=== PATIENT | female | born 1955 | race Caucasian/White ===

== ENCOUNTER 2022-12-18 13:45 | Emergency (ER) | payer OTHER, SELFPAY ==
[2022-12-18 13:53] VITALS: BP 117/55; PULSE 67; RESP 16; TEMP 36.6; O2SAT 98; BMI 25.5
--- NOTE | 2022-12-18 13:57 | DI.RAD.S_ITS ---
PROCEDURE: XR FOOT LT MIN 3V INDICATIONS: Knocked over by horse, pain TECHNIQUE: 3 views of the foot were acquired. COMPARISON: None. FINDINGS: Bones: No fractures or dislocations. No suspicious bony lesions. An accessory ossicle is present adjacent to the base of the 5th metacarpal. Widening of the PIP joint of the 5th toe appears chronic. Soft tissues: No tibiotalar joint effusion. Achilles tendon appears normal. IMPRESSION: No acute abnormality of the left foot. Dictated by: Rayshawn Vazquez M.D. on 12/18/2022 at 13:36 Approved by: Rayshawn Vazquez M.D. on 12/18/2022 at 13:38
--- NOTE | 2022-12-18 14:52 | ED_ITS ---
HPI - Extremity Injury (Lower) <MOLLY Nayak - Last Filed: 12/18/22 15:38> General Chief Complaint: Extremity Injury, Lower Stated Complaint: LT FOOT INJURY Time Seen by Provider: 12/18/22 14:01 Source: patient Mode of arrival: Wheelchair History of Present Illness HPI Narrative: 67-year-old female, never smoker, presents to the emergency department with left foot pain after being knocked down by her horse yesterday afternoon. Patient denies hitting her head or any loss of consciousness. Home treatment included NSAIDs, ice and elevation. Related Data Home Medications Medication Instructions Recorded Confirmed ACETAMINOPHEN (TYLENOL) 0 PO PRN ##0 09/30/06 Atorvastatin Calcium (Lipitor) 10 mg PO Q DAY ##0 09/30/06 HYDROCODONE/ACET 5/500 - 1 tab PO PRN ##0 09/30/06 (Hydrocodon-Acetaminophen 5-500) Allergies Allergy/AdvReac Type Severity Reaction Status Date / Time No Known Drug Allergies Allergy Verified 12/18/22 13:53 Review of Systems <MOLLY Nayak - Last Filed: 12/18/22 15:38> Review of Systems Narrative: Narrative: See HPI. GENERAL: Denies chills, fatigue, fever, sweats. RESPIRATORY: Denies dyspnea, cough, wheezing, sputum. CARDIOVASCULAR: Denies chest pain, palpitations, edema. GASTROINTESTINAL: Denies nausea, vomiting, abdominal pain, diarrhea, constipation. MSK: Denies weakness. Endorses left foot swelling and bruising. SKIN: Denies rash, skin lesions, or pruritis. NEUROLOGIC: Denies weakness, dizziness, headache, numbness, confusion. Patient History <MOLLY Nayak - Last Filed: 12/18/22 15:38> Social History Smoking Status: Never smoker Smoking Status: Never smoker alcohol intake frequency: holidays/special occasions only Substance Use Type: does not use Exam <MOLLY Nayak - Last Filed: 12/18/22 15:38> Narrative Exam Narrative: Exam Narrative: GENERAL: This is a well-nourished, well-developed patient, in no acute distress HEAD: Atraumatic. Normocephalic. RESPIRATORY: Respiratory rate and effort are normal. MSK: Moves all extremities. Normal range of motion, no clubbing or edema. Neurovascularly intact. NEURO: A&O x 3. SKIN: Warm, dry, no rashes or lesions noted. FOOT: There is swelling, bruising but no asymmetry. There is no tenderness to general palpation. Sensation grossly intact. There is no tenderness over the mid-foot or arch. Positive tenderness over metatarsal 3 and 4. The ankle flexion and extension is intact. Toes range of motion intact. The contralateral foot exam is unremarkable. Initial Vital Signs Initial Vital Signs: Vital Signs Temperature 97.9 F 12/18/22 13:53 Pulse Rate 67 12/18/22 13:53 Respiratory Rate 16 12/18/22 13:53 Blood Pressure 117/55 L 12/18/22 13:53 Pulse Oximetry 98 12/18/22 13:53 Oxygen Delivery Method Room Air 12/18/22 13:53 Reviewed <DO Shena Funk Last Filed: 12/18/22 16:08> Initial Vital Signs Initial Vital Signs: Vital Signs Temperature 97.9 F 12/18/22 13:53 Pulse Rate 67 12/18/22 13:53 Respiratory Rate 16 12/18/22 13:53 Blood Pressure 117/55 L 12/18/22 13:53 Pulse Oximetry 98 12/18/22 13:53 Oxygen Delivery Method Room Air 12/18/22 13:53 Course <MOLLY Nayak - Last Filed: 12/18/22 15:38> Orders Ordered: ED Orders 12/18/22 13:57 XR foot LT min 3V Stat Vital Signs Vital signs: Vital Signs - 8 hr 12/18/22 13:53 12/18/22 15:42 Temperature 97.9 F Pulse Rate 67 70 Respiratory Rate 16 Blood Pressure 117/55 L 99/58 L Pulse Oximetry 98 97 Oxygen Delivery Method Room Air Room Air <DO Shena Funk Last Filed: 12/18/22 16:08> Orders Ordered: ED Orders 12/18/22 13:57 XR foot LT min 3V Stat Vital Signs Vital signs: Vital Signs - 8 hr 12/18/22 13:53 12/18/22 15:42 Temperature 97.9 F Pulse Rate 67 70 Respiratory Rate 16 Blood Pressure 117/55 L 99/58 L Pulse Oximetry 98 97 Oxygen Delivery Method Room Air Room Air MDM - Extremity Injury (Lower) <MOLLY Nayak - Last Filed: 12/18/22 15:38> Differential Diagnosis Differential diagnosis: Likely ankle sprain and strain and other (Foot fracture, contusion) Imaging Data Extremity x-ray #1: My Impression: Normal foot. Radiologist's Impression: [address] [address] XRay Report Signed Patient: Leann Metcalf MR#: [id number] : 1955 Acct:[id number] Age/Sex: 67 / F Date of Service: 12/18/22 Loc: ED Accession Number: [id number] ?? Procedure: XR foot LT min 3V Ordering Provider: Wild Orozco D.O. PROCEDURE:? XR FOOT LT MIN 3V ? INDICATIONS:? Knocked over by horse, pain ? TECHNIQUE:? 3 views of the foot were acquired.? ? COMPARISON:? None. ? FINDINGS:? ? Bones:? No fractures or dislocations.? No suspicious bony lesions.? An accessory ossicle is present adjacent to the base of the 5th metacarpal.? Widening of the PIP joint of the 5th toe appears chronic. ? Soft tissues:? No tibiotalar joint effusion.? Achilles tendon appears normal.? ? ? IMPRESSION:? No acute abnormality of the left foot. ? ? Dictated by: Rayshawn Vazquez M.D. on 12/18/2022 at 13:36 ? ? Approved by: Rayshawn Vazquez M.D. on 12/18/2022 at 13:38 ? MDM Narrative Medical decision making narrative: 67-year-old female with left foot pain x1 day. Assessment was encouraging and x-ray was normal. Recommended supportive care that includes Rest (modified activity), along with ice, compression wrap/splint-immobilize as directed and elevation above heart. Tylenol or Ibuprofen for discomfort. Discussed plan of care and return precautions with patient, who verbalized understanding and was agreeable with course of action. Discharge Plan Departure Patient Disposition: Home Clinical Impression: Injury of foot, left Instructions: DI for Foot Pain Activity Restrictions/Additional Instructions: *You have been diagnosed with a left foot injury. My assessment was encouraging and your x-ray was normal. Please treat herself with supportive care that includes Rest (modified activity), along with ice, immobilize as needed and elevation above heart. Tylenol or Ibuprofen for discomfort. Please follow-up with your family doctor as needed. *What to do: *Please continue to take your regular medications as directed. [ ] New medication prescriptions sent to your pharmacy: [ ] [ ] New medication written as a paper prescription [ x] No new medications given *Please follow up with your primary care provider in 2-3 days, call for an appointment. Let them know you were seen in the Emergency Department and that we ask that you be seen in follow up. We will electronically transmit a record of today's note if your PCP is in our system *If you do not have a primary care provider please contact the [facility] Resource line at [phone]. They will ask some questions about your medical history and help get you set up with a doctor in the community. ? Return to ER if you should have any new, worsening or concerning symptoms, such as worsening pain, severe headache, confusion, chest pain, difficulty breathing, fever greater than 101 F, shaking chills, persistent vomiting to the point that you cannot drink fluids, or other new or worsening symptoms. Prescriptions: No Action ACETAMINOPHEN (TYLENOL) 0 PO PRN Qty: 0 Atorvastatin Calcium (Lipitor) 10 mg PO Q DAY Qty: 0 HYDROCODONE/ACET 5/500 - (Hydrocodon-Acetaminophen 5-500) 1 tab PO PRN Qty: 0 Stand Alone Forms: Patient Portal/API <Wild Orozco, DO - Last Filed: 12/18/22 16:08> [facility] ED [facility] Dr Orozco Co-Sign Statement: I was available for consultation during this patient's emergency department visit. This chart is signed by myself for administrative purposes only. I did not have direct contact with this patient during this visit. They were seen independently by the APC.
[2022-12-18 15:42] VITALS: BP 99/58; PULSE 70; O2SAT 97
== END 2022-12-18 15:43 | disposition home or self-care (01) ==
PROVIDERS: Emergency Provider Registered Nurse
DX: S99.922A Unspecified injury of left foot, initial encounter (principal); V80.010A Animal-rider injured by fall from or being thrown from horse in noncollision accident, initial encounter; Y93.52 Activity, horseback riding
CPT/HCPCS: 73630; 99281; 99282

== ENCOUNTER 2024-06-02 21:12 | Observation (INO) | payer MEDICARE, SELFPAY ==
[2024-06-02] VITALS (8 sets, daily range): BP systolic 138–168; BP diastolic 65–84; PULSE 58–72; RESP 12–36; TEMP 36.5; O2SAT 98–99; BMI 25.7
--- NOTE | 2024-06-02 21:21 | EKG_ITS ---
[address] [address] Test Date: 2024-06-02 Pat Name: Leann Metcalf Department: [facility] Room: Gender: Female [employer] Winder: REINA : 1955 Requested By: Order Number: [id number] Reading MD: Stefan Rushing Measurements Intervals Lilly Rate: 56 P: 64 ND: 176 QRS: 19 QRSD: 86 T: 14 QT: 448 QTc: 432 Interpretive Statements Sinus bradycardia with sinus arrhythmia Electronically Signed On 06-04-2024 19:42:22 PST by Stefan Rushing
--- NOTE | 2024-06-02 21:28 | ED.GENADULT ---
HPI - General Adult General Chief complaint: Nausea/Vomiting/Diarrhea Stated complaint: severe nausea, vomiting, chest px Time Seen by Provider: 06/02/24 21:13 Source: patient Mode of arrival: Ambulatory Limitations: no limitations History of Present Illness HPI narrative: Patient is a 69-year-old female. Recently underwent a Orthopedic surgery to her right shoulder. She has been on pain medication. Over the past week has not a bowel movement. Having abdominal pain and has been vomiting uncontrollable over the past 24 hours. No fevers. She states that her right shoulder seems to be recovering well. She feels like her abdomen is distended. She was urinating. She has been taking stool softeners without relief. States that she was having some chest pain and shortness of breath however most likely from all of the vomiting and just generalized body aches. No fevers. Related Data Home Medications Medication Instructions Recorded Confirmed ACETAMINOPHEN (TYLENOL) 0 PO PRN ##0 09/30/06 Atorvastatin Calcium (Lipitor) 10 mg PO Q DAY ##0 09/30/06 HYDROCODONE/ACET 5/500 - 1 tab PO PRN ##0 09/30/06 (Hydrocodon-Acetaminophen 5-500) Allergies Allergy/AdvReac Type Severity Reaction Status Date / Time No Known Drug Allergies Allergy Verified 12/18/22 13:53 Review of Systems Review of Systems ROS Unobtainable: All systems reviewed & are unremarkable except as noted in HPI and below Patient History Social History Smoking Status: Never smoker Smoking Status: Never smoker alcohol intake frequency: holidays/special occasions only Exam Initial Vital Signs Initial Vital Signs: Vital Signs Temperature 97.7 F 06/02/24 21:14 Pulse Rate 65 06/02/24 21:14 Respiratory Rate 22 06/02/24 21:14 Blood Pressure 138/84 06/02/24 21:14 Pulse Oximetry 98 06/02/24 21:14 Oxygen Delivery Method Room Air 06/02/24 21:14 Const General: cooperative Other: Appears uncomfortable with vomiting Resp Effort & Inspection: normal respiratory effort Auscultation: clear to auscultation bilaterally Cardio Rate: regular rate Rhythm: regular rhythm GI Inspection: non-distended Palpation: soft, No firm, No guarding and tender Skin General: no rashes or lesions noted Neuro General: patient alert, patient awake and moves all extremities Extrem General: capillary refill normal Course Orders Ordered: ED Orders 06/02/24 21:14 EKG-12 Lead Stat 06/02/24 21:28 CT abdomen pelvis w con Stat 06/02/24 21:39 Complete Blood Count AUTO DIFF Stat Comprehensive Metabolic Panel Stat Lipase Stat Troponin & CK Cardiac Panel Stat 06/02/24 21:57 XR chest 1V Stat 06/02/24 22:55 Urine Culture Stat Urine Microscopic Stat Sodium Chloride (Normal Saline 0.9%) 1,000 mls @ 100 mls/hr IV CONT KEIRA Last Admin: 06/03/24 02:12 Dose: 100 mls/hr Documented By: CY Discontinued Medications Sodium Chloride (Normal Saline 0.9%) 1,000 mls @ 1,000 mls/hr IV BOLUS ONE Stop: 06/02/24 22:28 Last Infusion: 06/02/24 22:40 Dose: Infused Documented By: Admin: 06/02/24 21:36 Dose: 1,000 mls/hr Documented By: Lorazepam (Lorazepam 2 Mg/Ml Inj) 1 mg IV NOW ONE Stop: 06/02/24 21:58 Last Admin: 06/02/24 22:03 Dose: 1 mg Documented By: LESTER Lorazepam (Lorazepam 2 Mg/Ml Inj) 0.5 mg IV NOW ONE Stop: 06/03/24 00:24 Last Admin: 06/03/24 01:06 Dose: 0.5 mg Documented By: SANDY Metoclopramide HCl (Metoclopramide 10 Mg/2 Ml Inj) 10 mg IV NOW ONE Stop: 06/02/24 22:55 Last Admin: 06/02/24 23:01 Dose: 10 mg Documented By: Ondansetron HCl (Ondansetron 4 Mg/2 Ml Inj) 4 mg IV NOW ONE Stop: 06/02/24 21:15 Last Admin: 06/02/24 21:36 Dose: 4 mg Documented By: Ondansetron HCl (Ondansetron 4 Mg/2 Ml Inj) 4 mg IV NOW ONE Stop: 06/02/24 21:46 Last Admin: 06/02/24 22:03 Dose: 4 mg Documented By: LESTER Vital Signs Vital signs: Vital Signs - 8 hr 06/02/24 21:14 06/02/24 21:29 06/02/24 21:30 Temperature 97.7 F Pulse Rate 65 67 58 L Respiratory Rate 22 36 H 29 H Blood Pressure 138/84 Pulse Oximetry 98 98 98 Oxygen Delivery Method Room Air 06/02/24 22:00 06/02/24 22:12 06/02/24 22:12 Temperature Pulse Rate 63 62 Respiratory Rate 25 H 16 Blood Pressure 164/78 H Pulse Oximetry 98 98 Oxygen Delivery Method Room Air 06/02/24 22:33 06/02/24 22:56 06/02/24 22:56 Temperature Pulse Rate 72 70 Respiratory Rate 12 17 Blood Pressure 149/65 H Pulse Oximetry 98 99 Oxygen Delivery Method 06/02/24 23:00 06/02/24 23:00 06/03/24 01:08 Temperature Pulse Rate 60 82 Respiratory Rate 14 Blood Pressure 168/71 H Pulse Oximetry 99 96 Oxygen Delivery Method Room Air 06/03/24 01:09 06/03/24 01:30 Temperature Pulse Rate 81 76 Respiratory Rate 12 Blood Pressure Pulse Oximetry 98 96 Oxygen Delivery Method Room Air Room Air Medical Decision Making Lab Data Lab results reviewed: Yes I reviewed the patient's lab results. 06/02/24 21:39 06/02/24 21:39 Labs: Lab Results 06/02/24 06/02/24 Range/Units 21:39 22:55 WBC 10.5 (4.5-11.0) X10^3/uL RBC 4.59 (4.0-5.2) X10^6/uL Hgb 13.5 (12.0-16.0) g/dL Hct 39.7 (36-46) % MCV 86.6 (80-100) fL MCH 29.5 (26-34) PG MCHC 34.1 (30-36) % RDW 13.6 (11.6-14.8) % Plt Count 329 (150-400) X10^3/uL Neut % (Auto) 79.8 H (50-75) % Lymph % (Auto) 13.5 L (25-40) % [place] % (Auto) 5.2 (3-14) % Eos % (Auto) 0.9 L (2-4) % Baso % (Auto) 0.6 (0-2) % Neut # (Auto) 8400 H (8710-2260) /uL Lymph # (Auto) 1400 (4261-7866) /uL [place] # (Auto) 500 (0-900) /uL Eos # (Auto) 100 (0-450) /uL Baso # (Auto) 100 (0-100) /uL Sodium 139 (137-145) mmol/L Potassium 3.8 (3.4-5.1) mmol/L Chloride 108 H (98-107) mmol/L Carbon Dioxide 20 L (22-32) mmol/L BUN 17 (7-17) mg/dL Creatinine 0.62 (0.52-1.04) mg/dL Estimated GFR > 60 (>60) mL/min BUN/Creatinine Ratio 27.4 H (6-22) Glucose 177 H (80-110) mg/dL Calcium 9.6 (8.4-10.2) mg/dL Total Bilirubin 0.7 (0.2-1.3) mg/dL AST 33 (14-36) IU/L ALT 19 (<35) IU/L Alkaline Phosphatase 64 (38-126) U/L Total Creatine Kinase 84 (30-135) U/L Troponin I < 0.012 (0.01-0.034) ng/mL Total Protein 7.6 (6.3-8.2) g/dL Albumin 4.5 (3.5-5.0) g/dL Globulin 3.1 (1.7-4.1) g/dL Albumin/Globulin Ratio 1.5 (1.0-2.8) Lipase 45 (23-300) U/L Urine RBC None seen (0-5/HPF) Urine WBC None seen (0-5/HPF) Ur Squamous Epith Cells 0-1 /hpf (0-5/HPF) Urine Bacteria Occasional (0-1) (None) Ur Culture Indicated? Cult not indicated Vol Urine Centrifuged 10ml (spun) Urine Dip Bedside Urine Glucose Negative Bedside Urine Bilirubin - Negative Bedside Urine Ketone ++ 40 Urine Specific [place] 1.010 Bedside Urine Occult Blood - Negative Bedside Urine pH 6.0 Bedside Urine Protein +/- 15 Bedside Urine Urobilinogen - Negative Bedside Urine Nitrite - Negative Bedside Urine Leukocytes +/- 15 Esterase Point of care testing: Urine Dip Bedside Urine Glucose Negative Bedside Urine Bilirubin - Negative Bedside Urine Ketone ++ 40 Urine Specific [place] 1.010 Bedside Urine Occult Blood - Negative Bedside Urine pH 6.0 Bedside Urine Protein +/- 15 Bedside Urine Urobilinogen - Negative Bedside Urine Nitrite - Negative Bedside Urine Leukocytes +/- 15 Esterase Imaging Data Chest x-ray: Radiologist's Impression: PROCEDURE: XR CHEST 1V INDICATIONS: chest pain TECHNIQUE: One view of the chest was acquired. COMPARISON: None. FINDINGS: Surgical changes and devices: Surgical clips overlying the left chest wall. Lungs and pleura: Lungs are clear. No pleural effusions or pneumothorax. Mediastinum: Mediastinal contours appear normal. Heart size is normal. Bones and chest wall: No suspicious bony lesions. Overlying soft tissues appear unremarkable. IMPRESSION: No acute cardiopulmonary abnormality is seen. CT scan - abdomen/pelvis: Radiologist's Impression: PROCEDURE: CT ABDOMEN PELVIS W CON INDICATIONS: constipation vs obstruction TECHNIQUE: After the administration of intravenous contrast, axial sections acquired from the lung bases to the pubic symphysis. Coronal and sagittal reformats were performed. For radiation dose reduction, the following was used: automated exposure control, adjustment of mA and/or kV according to patient size. COMPARISON: None. FINDINGS: Image quality: Diagnostic. Lower Chest: Large hiatal hernia. ABDOMEN: Liver: No solid mass. Gallbladder: No radiopaque gallstones or wall thickening. Biliary ducts: No biliary dilation. Pancreas: No ductal dilation. Spleen: Size is within normal limits. Adrenal Glands: No adrenal nodules. Kidneys and Ureters: No hydronephrosis. No solid mass. No complex renal cystic lesion which requires follow up. Stomach and Bowel: Moderate colonic stool load. Mild sigmoid wall thickening and on rectal wall thickening . There is mesenteric edema in the pelvis. Peritoneum: Trace free fluid in the pelvis. Ventral Wall: No significant ventral hernia. Abdominal Nodes: No retroperitoneal or mesenteric adenopathy by size criteria. Vessels: Aorta and inferior vena cava are normal in size. PELVIS: Pelvic Organs: Unremarkable. Bladder: No bladder wall thickening, accounting for underdistention. Pelvic Nodes: No enlarged lymph nodes. Miscellaneous: No inguinal hernias are seen. Bones: No aggressive osseous abnormality. Grade 1 anterolisthesis L4 on L5. Degenerative disc disease of the lumbar spine. IMPRESSION: Inflammatory changes in the deep pelvis, with associated rectal and sigmoid colonic wall thickening, likely indicating colitis/proctitis. These segments of the rectum and colon are not distended with stool, so stercoral colitis or proctitis is not a consideration. Diverticula are present, but there is no distinctly inflamed diverticulum to suggest diverticulitis. ECG Data Attestation: I personally reviewed and interpreted this ECG as follows: Interpretation: Sinus bradycardia Ventricular rate of 56 Normal axis Normal QRS No ST T wave changes MDM Narrative Medical decision making narrative: Had a very difficult time controlling the patient's nausea. CT scan showed no signs of an acute surgical abnormality. Her history is consistent with constipation. She was ketones in her urine. No signs of an active infection. With any sort of oral intake she started throwing up. This was despite multiple medications. Discussed the case with Dr. Garcia hospitalist on-call who will admit for further evaluation treatment. Discharge Plan Departure Patient Disposition: Admitted as Observation Clinical Impression: Intractable vomiting Admit Date/Time: 06/03/24 01:47 Admit Provider: Nedra Garcia
[2024-06-02] MEDS: SODIUM CHLORIDE 0.9% 1,000 ML 1000 ML IV (21:36)
[2024-06-02] MEDS: ONDANSETRON 4 MG/2 ML INJ IV ×2 (21:36→22:03)
[2024-06-02 21:48] LABS: Add Manual Diff / Slide Review NO; Basophils Absolute Auto 100 /uL (0-100); Basophils Percent Auto 0.6 % (0-2); Eosinophils Absolute Auto 100 /uL (0-450); Eosinophils Percent Auto 0.9 % (2-4); Hematocrit 39.7 % (36-46); Hemoglobin 13.5 g/dL (12.0-16.0); Lymphocytes Absolute Auto 1400 /uL (1100-4500); Lymphocytes Percent Auto 13.5 % (25-40); Mean Corpuscular HGB Conc 34.1 % (30-36); Mean Corpuscular Hemoglobin 29.5 PG (26-34); Mean Corpuscular Volume 86.6 fL (80-100); Monocytes Absolute Auto 500 /uL (0-900); Monocytes Percent Auto 5.2 % (3-14); Neutrophils Absolute Auto 8400 /uL (1500-7000); Neutrophils Percent Auto 79.8 % (50-75); Platelet Count 329 X10^3/uL (150-400); Red Blood Cell Count 4.59 X10^6/uL (4.0-5.2); Red Cell Distribution Width 13.6 % (11.6-14.8); White Blood Cell Count 10.5 X10^3/uL (4.5-11.0)
--- NOTE | 2024-06-02 21:57 | DI.RAD.S_ITS ---
PROCEDURE: XR CHEST 1V INDICATIONS: chest pain TECHNIQUE: One view of the chest was acquired. COMPARISON: None. FINDINGS: Surgical changes and devices: Surgical clips overlying the left chest wall. Lungs and pleura: Lungs are clear. No pleural effusions or pneumothorax. Mediastinum: Mediastinal contours appear normal. Heart size is normal. Bones and chest wall: No suspicious bony lesions. Overlying soft tissues appear unremarkable. IMPRESSION: No acute cardiopulmonary abnormality is seen. Dictated by: Jose Juan Carter M.D. on 06/02/2024 at 22:43 Approved by: Jose Juan Carter M.D. on 06/02/2024 at 22:44
[2024-06-02 21:59] LABS: Alanine Aminotransferase 19 IU/L (<35); Albumin 4.5 g/dL (3.5-5.0); Albumin Globulin Ratio 1.5 (1.0-2.8); Alkaline Phosphatase 64 U/L (38-126); Aspartate Aminotransferase 33 IU/L (14-36); BUN Creatinine Ratio 27.4 (6-22); Bilirubin Total 0.7 mg/dL (0.2-1.3); Blood Urea Nitrogen 17 mg/dL (7-17); Calcium 9.6 mg/dL (8.4-10.2); Carbon Dioxide 20 mmol/L (22-32); Chloride 108 mmol/L (98-107); Creatine Kinase 84 U/L (30-135); Estimated Glomerular Filt Rate > 60 mL/min (>60); Globulin 3.1 g/dL (1.7-4.1); Glucose 177 mg/dL (80-110); HEMOLYSIS 19 (0-50); Lipase 45 U/L (23-300); Potassium 3.8 mmol/L (3.4-5.1); Sodium 139 mmol/L (137-145); Total Protein 7.6 g/dL (6.3-8.2)
[2024-06-02] MEDS: LORazepam 2 MG/ML INJ 1 MG IV (22:03)
[2024-06-02 22:11] LABS: Troponin I < 0.012 ng/mL (0.01-0.034)
[2024-06-02] MEDS: METOCLOPRAMIDE 10 MG/2 ML INJ IV (23:01)
[2024-06-02 23:26] LABS: Bacteria Urine Occasional (0-1); Culture Indicated Urine Cult Not Indicated; RBC Urine None Seen (0-5/HPF); Squamous Epithelial Cell Urine 0-1 /HPF (0-5/HPF); Urine Volume 10mL (spun); WBC Urine None Seen (0-5/HPF)
[2024-06-03] VITALS (8 sets, daily range): BP systolic 104–160; BP diastolic 46–69; PULSE 63–82; RESP 12–18; TEMP 36.4–37.2; O2SAT 96–99; BMI 26.3
[2024-06-03] MEDS: LORazepam 2 MG/ML INJ 0.5 MG IV (01:06)
--- NOTE | 2024-06-03 02:02 | PM.HP.1 ---
History of Present Illness History of Present Illness Chief complaint: severe nausea, vomiting, chest px Narrative: Patient with h/o HLD, DJD, s/p R Shoulder Rotator cough tear repair, and been taking Opioids for post op Pain control , has noted nausea, , bloating, gassiness, decreased apatite, non bloody vomiting and constipation for about 5-7 days. These symptoms have been worsening over last 1-2 days, and she has had several bouts of vomiting yesterday and today, non bloody , no coffee grounds, as well as lower quadrants abd pain , without radiation to flanks. Denies fevers, chills, dysuria, hematuria, urinary urgency or frequency. Pt had transient SOB , and Chest pain in lower chest / Epigastrium with dry heaving , but subsided spontaneously. No cough , SOB. She came to ED for evaluation. In ED was hypetensive, afebrile, HR 81, RR 12, O2 sats 98% on RA. EKG, reviewed by me: Sinus Bradycardia HR 56, Sinus Arrhythmia, no acuter ST- T wave changes Labs : No kleukocytosis, BUN 17, Creat 27.4, no electrolyte abn, Lipase Nl, UA : no signs of infection, ketones + Gl 177CTAP : no acute findings, no obstruction. Troponin not elevated 0.012 .Stool burden present without stercoral colitis.LFTs WNL . Pt was given antiemetics, Lorazepam IV , Reglan IV, Fentanyl and referred to Tele Hospitalist for admission as Observation. [facility] Social History household members: none Smoking Status: Former smoker Meds Home Medications and Allergies Home Medications Medication Instructions Recorded Confirmed Type ACETAMINOPHEN (TYLENOL) 0 PO PRN ##0 09/30/06 History Atorvastatin Calcium (Lipitor) 10 mg PO Q DAY ##0 09/30/06 History HYDROCODONE/ACET 5/500 - 1 tab PO PRN ##0 09/30/06 History (Hydrocodon-Acetaminophen 5-500) Allergies Allergy/AdvReac Type Severity Reaction Status Date / Time No Known Drug Allergies Allergy Verified 12/18/22 13:53 Review of Systems Review of Systems ROS: Yes All systems reviewed with the patient and are negative except as otherwise documented Exam Vital Signs (past 8 hours): - 06/02/24 21:14 06/02/24 21:29 06/02/24 21:30 Temperature 97.7 F Pulse Rate 65 67 58 L Respiratory Rate 22 36 H 29 H Blood Pressure 138/84 Pulse Oximetry 98 98 98 Oxygen Delivery Method Room Air 06/02/24 22:00 06/02/24 22:12 06/02/24 22:12 Temperature Pulse Rate 63 62 Respiratory Rate 25 H 16 Blood Pressure 164/78 H Pulse Oximetry 98 98 Oxygen Delivery Method Room Air 06/02/24 22:33 06/02/24 22:56 06/02/24 22:56 Temperature Pulse Rate 72 70 Respiratory Rate 12 17 Blood Pressure 149/65 H Pulse Oximetry 98 99 Oxygen Delivery Method 06/02/24 23:00 06/02/24 23:00 06/03/24 01:08 Temperature Pulse Rate 60 82 Respiratory Rate 14 Blood Pressure 168/71 H Pulse Oximetry 99 96 Oxygen Delivery Method Room Air 06/03/24 01:09 06/03/24 01:30 Temperature Pulse Rate 81 76 Respiratory Rate 12 Blood Pressure Pulse Oximetry 98 96 Oxygen Delivery Method Room Air Room Air Oxygen Delivery Method Room Air Const General: cooperative and other (A and O x 3 , in No Acute Distress.) Nutritional Appearance: well nourished [facility] Head: other (NC, AT ) Ears: external ears normal Nose: nares normal Mouth: other (oral mmm ) Throat: posterior oropharynx normal Eyes General: appearance normal, both eyes and all related structures Conjunctivae: conjunctivae normal Sclera: sclerae normal Pupils: PERRL EOM: EOM intact bilaterally Neck Neck: other (supple, no TMG , no Lymphadenopathy) Chest Chest: other (Unlabored respirations, BS presnt and equal bilaterally, no Wheeze/ Rales/ ) Cardio Heart Sounds: other (RRR, No JOCELYNN 3/6 , No gallop or Rub) Pulses: normal peripheral pulses GI Auscultation: other (Soft, No tender, Non distended, BS present WNL,no HSM. no flank tenderness) Back/Spine/Pelvis Back: other (No tenderness) Skin General: no rashes or lesions noted Neuro General: patient alert, patient awake and patient oriented x3 Cranial Nerves: PERRL, EOM intact bilaterally and other (No motor or sensory deficits) Cognition: normal cognition Speech: speech normal Extrem General: capillary refill normal and other (No edema, Cyanosis or clubbing, no calf tenderness bilat) Psych Appearance: grossly normal Mood: congruent mood Affect: normal affect Thought Process: normal Thought Content: normal Judgment: judgment good Objective ECG Impression: See HPI Imaging CT scan - abdomen: Radiologist's impression: CTAP : Inflammatory changes in the deep pelvis, with associated rectal and sigmoid colonic wall thickening, likely indicating colitis/proctitis. These segments of the rectum and colon are not distended with stool, so stercoral colitis or proctitis is not a consideration. Diverticula are present, but there is no distinctly inflamed diverticulum to suggest diverticulitis. Labs 06/03/24 04:16 06/03/24 04:16 Labs: Laboratory Results - last 24 hr 06/02/24 06/02/24 21:39 22:55 WBC 10.5 RBC 4.59 Hgb 13.5 Hct 39.7 MCV 86.6 MCH 29.5 MCHC 34.1 RDW 13.6 Plt Count 329 Neut % (Auto) 79.8 H Lymph % (Auto) 13.5 L [place] % (Auto) 5.2 Eos % (Auto) 0.9 L Baso % (Auto) 0.6 Neut # (Auto) 8400 H Lymph # (Auto) 1400 [place] # (Auto) 500 Eos # (Auto) 100 Baso # (Auto) 100 Sodium 139 Potassium 3.8 Chloride 108 H Carbon Dioxide 20 L BUN 17 Creatinine 0.62 Estimated GFR > 60 BUN/Creatinine Ratio 27.4 H Glucose 177 H Calcium 9.6 Total Bilirubin 0.7 AST 33 ALT 19 Alkaline Phosphatase 64 Total Creatine Kinase 84 Troponin I < 0.012 Total Protein 7.6 Albumin 4.5 Globulin 3.1 Albumin/Globulin Ratio 1.5 Lipase 45 Urine RBC None seen Urine WBC None seen Ur Squamous Epith Cells 0-1 /hpf Urine Bacteria Occasional (0-1) Ur Culture Indicated? Cult not indicated Vol Urine Centrifuged 10ml (spun) Assessment & Plan Assessment and plan (1) Intractable nausea and vomiting: Problem details: Likely sec to opioid induced decreased gut motilty/ obstipation, Status: Acute (2) Opioid-induced constipation: Problem details: Decreased to no BM sec to opioids use Status: Acute (3) Colitis: Problem details: Mild Sigmoid and proctitis CTAP / no fever, or Leukocytosis , cont NPO, advance to clear liquids as tolerated Status: Acute (4) Hypovolemia dehydration: Problem details: Sec to GI losses, decreased oral intake. Continue IVF , monitor U/O , Is and Os Status: Acute (5) Hyperglycemia, unspecified: Problem details: likely reactionary / transient, has no h/o DM , shall monitor BG Status: Acute Plan as above. Assessment & Plan narrative: see above Time-Based Coding :: [63 mins] spent with patient and on the chart (including review of chart, obtaining history, exam, reviewing outside data, placing orders, documenting exam and treatment plan, and counseling patient) on [DATE].
[2024-06-03] MEDS: SODIUM CHLORIDE 0.9% 1,000 ML 100 ML IV (02:12)
[2024-06-03] MEDS: ONDANSETRON 4 MG/2 ML INJ IV ×3 (02:34→20:50)
[2024-06-03] MEDS: SODIUM CHLORIDE 0.45% 1,000 ML 100 ML IV (02:52)
[2024-06-03] MEDS: POTASSIUM CHLORIDE IN WATER 10 MEQ/100 ML PIGGYBACK 100 MEQ IV ×4 (03:05→06:54)
[2024-06-03] MEDS: LORazepam 2 MG/ML INJ 1 MG IV (03:41)
--- NOTE | 2024-06-03 03:51 | EKG_ITS ---
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
[2024-06-03 05:05] LABS: Add Manual Diff / Slide Review NO; Basophils Absolute Auto 0 /uL (0-100); Basophils Percent Auto 0.1 % (0-2); Eosinophils Absolute Auto 0 /uL (0-450); Hematocrit 32.5 % (36-46); Hemoglobin 11.2 g/dL (12.0-16.0); Lymphocytes Absolute Auto 300 /uL (1100-4500); Lymphocytes Percent Auto 3.1 % (25-40); Mean Corpuscular HGB Conc 34.5 % (30-36); Mean Corpuscular Hemoglobin 29.8 PG (26-34); Mean Corpuscular Volume 86.3 fL (80-100); Monocytes Absolute Auto 200 /uL (0-900); Monocytes Percent Auto 2.1 % (3-14); Neutrophils Absolute Auto 10400 /uL (1500-7000); Neutrophils Percent Auto 94.7 % (50-75); Platelet Count 232 X10^3/uL (150-400); Red Blood Cell Count 3.76 X10^6/uL (4.0-5.2)
[2024-06-03 05:14] LABS: BUN Creatinine Ratio 27.8 (6-22); Blood Urea Nitrogen 15 mg/dL (7-17); Calcium 8.5 mg/dL (8.4-10.2); Carbon Dioxide 21 mmol/L (22-32); Chloride 108 mmol/L (98-107); Estimated Glomerular Filt Rate > 60 mL/min (>60); Glucose 185 mg/dL (80-110); HEMOLYSIS < 15 (0-50); Potassium 3.7 mmol/L (3.4-5.1); Sodium 136 mmol/L (137-145)
[2024-06-03 05:23] LABS: Troponin I < 0.012 ng/mL (0.01-0.034)
[2024-06-03] MEDS: METOCLOPRAMIDE 10 MG/2 ML INJ IV ×2 (08:08→15:44)
[2024-06-03] MEDS: ENOXAPARIN 40 MG/0.4 ML SYRINGE SUBCUT (09:59)
[2024-06-03] MEDS: PROMETHAZINE 12.5 MG SUPP PR (10:11)
--- NOTE | 2024-06-03 14:21 | CM.DANOTE ---
Patient is a 69 yo female who was admitted OBS Status on 06/03/24 today for intractable n/v. Pt has [employer] ADV under [employer] for insurance and her PCP is Dr. Soria. EMR was reviewed. Per MD, pt with recent shoulder surgery and admitted for likely constipation and n/v from opioid pain medications from surgery. Pt to attempt slowly advancing diet to see if she can tolerate and not yet medically stable to discharge today. SW met bedside with pt and explained role and she confirms she lives in [place] in her own home alone but on the same property is her adult Dtr who lives right next door. Pt is active and independent at baseline and drives and currently only has a sling for her shoulder from surgery and does not use any other DME. Pt denies any hx of HH or SNF. She confirms surgery was at another hospital and she has been home for about a week and states her pain was well managed and she was completing her own ADLs independently and felt that things were going well until she could not stop vomiting yesterday. Pt confirms that Dtr can assist as needed and provide transport at d/c and preference is home once her vomiting is resolved. Pt does not anticipate any further needs at d/c. Plan: SW to follow for plan of discharge home via Dtr POV and any further identified discharge planning needs once pt can tolerate diet and have bm. MAURICIO Vera Discharge Planning/Care Management CM Discharge Assessment Start: 06/03/24 14:10 Freq: Status: Active Protocol: Document 06/03/24 14:10 BF (Rec: 06/03/24 14:21 BF [id number]) Discharge Planning Assessment Assigned Double End Trimmer MAURICIO Nj DPOA/Assigned Designee Name informally Dtr Advance Directives? No Advance Directives on File No History Provided By Patient,Medical Record Has Patient been admitted in last 30 No days? Comment Recent admit at another hospital for shoulder surgery and went home Prior Living Arrangements House Household Members none Type of transporation used prior to Drives own vehicle admit Independent with ADL's Yes Is patient alert and oriented? Yes Caregiver for Another No DME Already Rented / Owned Other Comment Shoulder sling from surgery Barriers to Discharge No Discharge Plan Home Transportation Arrangement Dtr to provide transport at d/ c Referrals Initiated None needed Whiteboard Updated in Patient Room with Yes name and ext. # of Double End Trimmer Review Status In Process Please Provide Date Initial DC 06/03/24 Assessment Was Performed Next Review Type Continued Stay Review
--- NOTE | 2024-06-03 16:04 | P.HP_ITS ---
History of Present Illness History of Present Illness Date Patient Seen: 06/03/24 Time Patient Seen: 09:30 Chief complaint: severe nausea, vomiting, chest px Narrative: Per overnight provider: Patient with h/o HLD, DJD, s/p R Shoulder Rotator cough tear repair, and been taking Opioids for post op Pain control , has noted nausea, , bloating, gassiness, decreased apatite, non bloody vomiting and constipation for about 5-7 days. These symptoms have been worsening over last 1-2 days, and she has had several bouts of vomiting yesterday and today, non bloody , no coffee grounds, as well as lower quadrants abd pain , without radiation to flanks. Denies fevers, chills, dysuria, hematuria, urinary urgency or frequency. Pt had transient SOB , and Chest pain in lower chest / Epigastrium with dry heaving , but subsided spontaneously. No cough , SOB. She came to ED for evaluation. In ED was hypetensive, afebrile, HR 81, RR 12, O2 sats 98% on RA. EKG, reviewed by me: Sinus Bradycardia HR 56, Sinus Arrhythmia, no acuter ST- T wave changes Labs : No kleukocytosis, BUN 17, Creat 27.4, no electrolyte abn, Lipase Nl, UA : no signs of infection, ketones + Gl 177CTAP : no acute findings, no obstruction. Troponin not elevated 0.012 .Stool burden present without stercoral colitis.LFTs WNL . Pt was given antiemetics, Lorazepam IV , Reglan IV, Fentanyl and referred to Tele Hospitalist for admission as Observation. Interval history: Patient feels much improved this morning, she is still fairly nauseous, without vomiting and her abdominal pain improved. She reports she had a bowel movement yesterday. Reports similar symptoms after her gastric sleeve procedure. [facility] Surgical History (Updated 06/03/24 @ 16:04 by Stefan Rushing DO) H/O shoulder surgery H/O gastric sleeve Social History household members: none Smoking Status: Former smoker Meds Home Medications and Allergies Home Medications Medication Instructions Recorded Confirmed Type ACETAMINOPHEN (TYLENOL) 0 PO PRN ##0 09/30/06 History Atorvastatin Calcium (Lipitor) 10 mg PO Q DAY ##0 09/30/06 History HYDROCODONE/ACET 5/500 - 1 tab PO PRN ##0 09/30/06 History (Hydrocodon-Acetaminophen 5-500) Allergies Allergy/AdvReac Type Severity Reaction Status Date / Time No Known Drug Allergies Allergy Verified 12/18/22 13:53 Review of Systems Review of Systems Narrative: All other systems reviewed with the patient and are negative unless otherwise stated. Exam Vital Signs (past 8 hours): - 06/03/24 11:00 06/03/24 15:00 Temperature 97.8 F 98.3 F Pulse Rate 68 68 Respiratory Rate 14 14 Blood Pressure 160/46 H 138/60 Pulse Oximetry 99 99 Oxygen Flow Rate 0 0 Oxygen Delivery Method Room Air Oxygen Flow Rate 0 Narrative Exam Narrative: General:? Patient is well developed and well nourished, in no distress at this time. Chest:? Normal AP diameter and contour without kyphoscoliosis, no tachypnea, equal chest rise bilaterally. Lungs:? CTA b/l no wheezing rhonchi or rales. Cardio:?RRR no m/r/g. Abdomen: S NT ND. Musculoskeletal:? Muscle strength and tone are equal within normal limits. R arm in sling. Extremities: No edema or joint effusions. No cyanosis or clubbing. Skin:? Pale,? Warm to touch,dry and intact without rashes, ulcerations or petechiae.? Neuro:? Alert and orientated x3,? sensation to touch intact in all extremities, no gross deficits noted of cranial nerves. Psych:? Patient has a well-kept appearance, appropriate affect, mental status attitude thought context and judgment are appropriate for age. Objective ECG Impression: Sinus rhythm with sinus arrhythmia and a first-degree AV block, no ST or T-wave abnormalities, no acute ischemia Labs 06/03/24 04:16 06/03/24 04:16 Labs: Laboratory Results - last 24 hr 06/02/24 06/02/24 06/03/24 21:39 22:55 04:06 WBC 10.5 RBC 4.59 Hgb 13.5 Hct 39.7 MCV 86.6 MCH 29.5 MCHC 34.1 RDW 13.6 Plt Count 329 Neut % (Auto) 79.8 H Lymph % (Auto) 13.5 L [place] % (Auto) 5.2 Eos % (Auto) 0.9 L Baso % (Auto) 0.6 Neut # (Auto) 8400 H Lymph # (Auto) 1400 [place] # (Auto) 500 Eos # (Auto) 100 Baso # (Auto) 100 Sodium 139 Potassium 3.8 Chloride 108 H Carbon Dioxide 20 L BUN 17 Creatinine 0.62 Estimated GFR > 60 BUN/Creatinine Ratio 27.4 H Glucose 177 H Calcium 9.6 Magnesium Total Bilirubin 0.7 AST 33 ALT 19 Alkaline Phosphatase 64 Total Creatine Kinase 84 Troponin I < 0.012 < 0.012 Total Protein 7.6 Albumin 4.5 Globulin 3.1 Albumin/Globulin Ratio 1.5 Lipase 45 Urine RBC None seen Urine WBC None seen Ur Squamous Epith Cells 0-1 /hpf Urine Bacteria Occasional (0-1) Ur Culture Indicated? Cult not indicated Vol Urine Centrifuged 10ml (spun) 06/03/24 04:16 WBC 11.0 RBC 3.76 L Hgb 11.2 L Hct 32.5 L MCV 86.3 MCH 29.8 MCHC 34.5 RDW 13.0 Plt Count 232 Neut % (Auto) 94.7 H Lymph % (Auto) 3.1 L [place] % (Auto) 2.1 L Eos % (Auto) 0.0 L Baso % (Auto) 0.1 Neut # (Auto) 96420 H Lymph # (Auto) 300 L [place] # (Auto) 200 Eos # (Auto) 0 Baso # (Auto) 0 Sodium 136 L Potassium 3.7 Chloride 108 H Carbon Dioxide 21 L BUN 15 Creatinine 0.54 Estimated GFR > 60 BUN/Creatinine Ratio 27.8 H Glucose 185 H Calcium 8.5 Magnesium 2.0 Total Bilirubin AST ALT Alkaline Phosphatase Total Creatine Kinase Troponin I Total Protein Albumin Globulin Albumin/Globulin Ratio Lipase Urine RBC Urine WBC Ur Squamous Epith Cells Urine Bacteria Ur Culture Indicated? Vol Urine Centrifuged Assessment & Plan Assessment & Plan narrative: (1) Intractable nausea and vomiting: - suspect due to #2 below, now improved after bowel movement. Still nauseous, requiring IV medication. PO medication and diet ordered today. - patient also with hx of gastric sleeve (2) Opioid-induced constipation: - reduce opiates, but patient no longer requiring any - continue with laxative therapies (3) Colitis: - suspect stercoral colitis based on history, she had a bowel movement prior to CT which may explain CT finding. (4) Hypovolemia dehydration: - can stop IV fluids today, advance diet as tolerated. (5) Hyperglycemia, unspecified: - likely reactive, no hx of DM Code: Full, surrogate is patient's spouse DVT: Lovenox daily I have utilized all available immediate resources to obtain, update, or review the patient's current medications. Dispo: patient admitted under observation status, hopeful for home tomorrow. Additional history obtained via discussions with the overnight hospitalist. These discussions contributed to the creation of the above assessment and plan. I have reviewed patient's presenting documentation, labs, and imaging personally. Time-Based Coding :: [TOTAL MINUTES] spent with patient and on the chart (including review of chart, obtaining history, exam, reviewing outside data, placing orders, documenting exam and treatment plan, and counseling patient) on [DATE].
[2024-06-03] MEDS: CALCIUM CARBONATE 500 MG TAB 1000 MG PO (16:19)
[2024-06-03] MEDS: PANTOPRAZOLE DR 20 MG TABLET PO (16:19)
[2024-06-03] MEDS: SODIUM CHLORIDE 0.9% FLUSH 10 ML IV (20:44)
[2024-06-04] VITALS: BP 143/58; PULSE 57; RESP 12; TEMP 36.6; O2SAT 98
[2024-06-04] MEDS: METOCLOPRAMIDE 10 MG/2 ML INJ IV (00:05)
[2024-06-04] MEDS: PROMETHAZINE 12.5 MG SUPP PR ×2 (03:30→17:58)
[2024-06-04 04:00] VITALS: BP 144/62; PULSE 53; RESP 12; TEMP 36.9; O2SAT 97
[2024-06-04 05:13] LABS: Add Manual Diff / Slide Review NO; Basophils Absolute Auto 0 /uL (0-100); Basophils Percent Auto 0.4 % (0-2); Eosinophils Absolute Auto 0 /uL (0-450); Eosinophils Percent Auto 0.2 % (2-4); Hematocrit 36.6 % (36-46); Hemoglobin 12.4 g/dL (12.0-16.0); Lymphocytes Absolute Auto 1100 /uL (1100-4500); Lymphocytes Percent Auto 10.3 % (25-40); Mean Corpuscular HGB Conc 33.8 % (30-36); Mean Corpuscular Hemoglobin 29.6 PG (26-34); Mean Corpuscular Volume 87.6 fL (80-100); Monocytes Absolute Auto 900 /uL (0-900); Monocytes Percent Auto 8.1 % (3-14); Neutrophils Absolute Auto 8600 /uL (1500-7000); Platelet Count 268 X10^3/uL (150-400); Red Blood Cell Count 4.18 X10^6/uL (4.0-5.2); Red Cell Distribution Width 13.4 % (11.6-14.8); White Blood Cell Count 10.6 X10^3/uL (4.5-11.0)
[2024-06-04 05:58] LABS: Alanine Aminotransferase 21 IU/L (<35); Albumin 4.2 g/dL (3.5-5.0); Albumin Globulin Ratio 1.7 (1.0-2.8); Alkaline Phosphatase 50 U/L (38-126); Aspartate Aminotransferase 38 IU/L (14-36); BUN Creatinine Ratio 17.5 (6-22); Bilirubin Total 0.5 mg/dL (0.2-1.3); Blood Urea Nitrogen 10 mg/dL (7-17); Calcium 9.1 mg/dL (8.4-10.2); Carbon Dioxide 23 mmol/L (22-32); Chloride 106 mmol/L (98-107); Estimated Glomerular Filt Rate > 60 mL/min (>60); Globulin 2.5 g/dL (1.7-4.1); Glucose 120 mg/dL (80-110); HEMOLYSIS 20 (0-50); Potassium 4.1 mmol/L (3.4-5.1); Sodium 134 mmol/L (137-145); Total Protein 6.7 g/dL (6.3-8.2)
[2024-06-04] MEDS: ONDANSETRON 4 MG/2 ML INJ IV (07:52)
[2024-06-04] MEDS: SODIUM CHLORIDE 0.9% FLUSH 10 ML IV ×2 (07:57→21:10)
[2024-06-04 08:00] VITALS: BP 148/74; PULSE 63; RESP 16; TEMP 36.8; O2SAT 97
[2024-06-04] MEDS: ENOXAPARIN 40 MG/0.4 ML SYRINGE SUBCUT (08:42)
[2024-06-04] MEDS: METOCLOPRAMIDE HCL 5 MG TABLET 10 MG PO ×3 (10:22→22:57)
--- NOTE | 2024-06-04 11:59 | CM.DPC ---
DCP Cont. Reviewed EMR and team rounds for status updates. Per Hospitalist, pt is having nausea today, urine cultures are still pending for possible UTI. Plan is d/c tomorrow, 06/05 if improved. Monitoring for final d/c needs.
[2024-06-04 12:00] VITALS: BP 151/61; PULSE 66; RESP 16; TEMP 36.6; O2SAT 98
[2024-06-04] MEDS: ONDANSETRON 4 MG ODT SL ×2 (14:41→19:49)
[2024-06-04 16:00] VITALS: BP 155/84; PULSE 56; RESP 16; TEMP 36.3; O2SAT 96
--- NOTE | 2024-06-04 17:24 | PM.PN.1 ---
Subjective Subjective Interval history: 69 F admitted with abdominal pain, nausea, vomiting. Still nauseous today with minimal PO intake and clear liquids predominantly, but no abdominal pain and slow steady improvement. Exam Vital Signs (past 8 hours): - 06/04/24 12:00 Temperature 98 F Pulse Rate 66 Respiratory Rate 16 Blood Pressure 151/61 H Pulse Oximetry 98 Oxygen Delivery Method Room Air Oxygen Flow Rate 0 Narrative Exam Narrative: General:? Patient is well developed and well nourished, in no distress at this time. Chest:? Normal AP diameter and contour without kyphoscoliosis, no tachypnea, equal chest rise bilaterally. Lungs:? CTA b/l no wheezing rhonchi or rales. Cardio:?RRR no m/r/g. Abdomen: S NT ND. Musculoskeletal:? Muscle strength and tone are equal within normal limits. R arm in sling. Extremities: No edema or joint effusions. No cyanosis or clubbing. Skin:? Pale,? Warm to touch,dry and intact without rashes, ulcerations or petechiae.? Neuro:? Alert and orientated x3,? sensation to touch intact in all extremities, no gross deficits noted of cranial nerves. Psych:? Patient has a well-kept appearance, appropriate affect, mental status attitude thought context and judgment are appropriate for age. Objective Labs 06/04/24 05:05 06/04/24 05:05 Labs: Laboratory Results - last 24 hr 06/04/24 05:05 WBC 10.6 RBC 4.18 Hgb 12.4 Hct 36.6 MCV 87.6 MCH 29.6 MCHC 33.8 RDW 13.4 Plt Count 268 Neut % (Auto) 81.0 H Lymph % (Auto) 10.3 L [place] % (Auto) 8.1 Eos % (Auto) 0.2 L Baso % (Auto) 0.4 Neut # (Auto) 8600 H Lymph # (Auto) 1100 [place] # (Auto) 900 Eos # (Auto) 0 Baso # (Auto) 0 Sodium 134 L Potassium 4.1 Chloride 106 Carbon Dioxide 23 BUN 10 Creatinine 0.57 Estimated GFR > 60 BUN/Creatinine Ratio 17.5 Glucose 120 H Calcium 9.1 Magnesium 2.0 Total Bilirubin 0.5 AST 38 H ALT 21 Alkaline Phosphatase 50 Total Protein 6.7 Albumin 4.2 Globulin 2.5 Albumin/Globulin Ratio 1.7 PFSH Surgical History (Updated 06/03/24 @ 16:04 by Stefan Rushing DO) H/O shoulder surgery H/O gastric sleeve Social History household members: none Smoking Status: Former smoker Assessment & Plan Assessment & Plan narrative: (1) Intractable nausea and vomiting: - suspect due to #2 below, now improved after bowel movement. Still nauseous, requiring IV medication. PO medication and diet ordered today. - patient also with hx of gastric sleeve - continue home PPI (2) Opioid-induced constipation: - patient has been off opiates for multiple days. - continue with laxative therapies (3) Colitis: - suspect stercoral colitis based on history, she had a bowel movement prior to CT which may explain CT finding. If no improvement consider repeat imaging though her abdominal pain has resolved. - no leukocytosis to suggest infection, no fever. Did not give any antibiotics. (4) Hypovolemia dehydration: - can stop IV fluids today, advance diet as tolerated, only tolerating some minimal clears today. (5) Hyperglycemia, unspecified: - likely reactive, no hx of DM Code: Full, surrogate is patient's spouse DVT: Lovenox daily I have utilized all available immediate resources to obtain, update, or review the patient's current medications. Dispo: patient admitted under observation status, hopeful for home tomorrow. Additional history obtained via discussions with the overnight hospitalist. These discussions contributed to the creation of the above assessment and plan. I have reviewed patient's presenting documentation, labs, and imaging personally. Time-Based Coding :: [TOTAL MINUTES] spent with patient and on the chart (including review of chart, obtaining history, exam, reviewing outside data, placing orders, documenting exam and treatment plan, and counseling patient) on [DATE].
[2024-06-04] MEDS: BISACODYL 5 MG TABLET PO (17:52)
[2024-06-04 20:00] VITALS: BP 148/70; PULSE 59; RESP 16; TEMP 37.2; O2SAT 98
[2024-06-05] VITALS: BP 141/71; PULSE 57; TEMP 36.9; O2SAT 98
[2024-06-05 04:00] VITALS: BP 126/68; PULSE 62; RESP 20; TEMP 36.2; O2SAT 97
[2024-06-05] MEDS: SENNOSIDES 8.6 MG TABLET 17.2 MG PO (04:20)
[2024-06-05] MEDS: PROMETHAZINE 12.5 MG SUPP PR ×2 (04:20→11:07)
[2024-06-05 05:14] LABS: Add Manual Diff / Slide Review NO; Basophils Absolute Auto 100 /uL (0-100); Basophils Percent Auto 0.7 % (0-2); Eosinophils Absolute Auto 0 /uL (0-450); Eosinophils Percent Auto 0.3 % (2-4); Hematocrit 41.1 % (36-46); Lymphocytes Absolute Auto 1500 /uL (1100-4500); Lymphocytes Percent Auto 16.1 % (25-40); Mean Corpuscular Hemoglobin 29.3 PG (26-34); Monocytes Absolute Auto 900 /uL (0-900); Monocytes Percent Auto 9.8 % (3-14); Neutrophils Absolute Auto 6700 /uL (1500-7000); Neutrophils Percent Auto 73.1 % (50-75); Platelet Count 349 X10^3/uL (150-400); Red Blood Cell Count 4.78 X10^6/uL (4.0-5.2); Red Cell Distribution Width 13.5 % (11.6-14.8); White Blood Cell Count 9.2 X10^3/uL (4.5-11.0)
[2024-06-05 05:30] LABS: Alanine Aminotransferase 25 IU/L (<35); Albumin 4.7 g/dL (3.5-5.0); Albumin Globulin Ratio 1.5 (1.0-2.8); Alkaline Phosphatase 76 U/L (38-126); Aspartate Aminotransferase 39 IU/L (14-36); Bilirubin Total 0.6 mg/dL (0.2-1.3); Blood Urea Nitrogen 12 mg/dL (7-17); Calcium 9.4 mg/dL (8.4-10.2); Carbon Dioxide 26 mmol/L (22-32); Chloride 102 mmol/L (98-107); Estimated Glomerular Filt Rate > 60 mL/min (>60); Globulin 3.1 g/dL (1.7-4.1); Glucose 110 mg/dL (80-110); HEMOLYSIS < 15 (0-50); Magnesium 2.1 mg/dL (1.6-2.3); Potassium 3.3 mmol/L (3.4-5.1); Sodium 135 mmol/L (137-145); Total Protein 7.8 g/dL (6.3-8.2)
[2024-06-05 08:04] VITALS: BP 138/74; PULSE 59; RESP 19; TEMP 36.8; O2SAT 98
[2024-06-05] MEDS: POTASSIUM CHLORIDE 20 MEQ TAB 40 MEQ PO (08:25)
[2024-06-05] MEDS: METOCLOPRAMIDE HCL 5 MG TABLET 10 MG PO ×2 (08:25→15:04)
[2024-06-05] MEDS: SERTRALINE 50 MG TABLET 100 MG PO (08:25)
[2024-06-05] MEDS: ENOXAPARIN 40 MG/0.4 ML SYRINGE SUBCUT (08:25)
[2024-06-05] MEDS: OXYBUTYNIN 5 MG TABLET PO (08:25)
[2024-06-05] MEDS: PANTOPRAZOLE DR 20 MG TABLET PO (08:25)
[2024-06-05] MEDS: SODIUM CHLORIDE 0.9% FLUSH 10 ML IV (08:26)
[2024-06-05] MEDS: CALCIUM CARBONATE 500 MG TAB 1000 MG PO (08:48)
[2024-06-05 12:00] VITALS: BP 148/80; PULSE 57; RESP 19; TEMP 36.7; O2SAT 99
--- NOTE | 2024-06-05 12:33 | P.DS_ITS ---
History of Present Illness History of Present Illness Chief complaint: severe nausea, vomiting, chest px Narrative: From H&P: atient with h/o HLD, DJD, s/p R Shoulder Rotator cough tear repair, and been taking Opioids for post op Pain control , has noted nausea, , bloating, gassiness, decreased apatite, non bloody vomiting and constipation for about 5-7 days. These symptoms have been worsening over last 1-2 days, and she has had several bouts of vomiting yesterday and today, non bloody , no coffee grounds, as well as lower quadrants abd pain , without radiation to flanks. Denies fevers, chills, dysuria, hematuria, urinary urgency or frequency. Pt had transient SOB , and Chest pain in lower chest / Epigastrium with dry heaving , but subsided spontaneously. No cough , SOB. She came to ED for evaluation. In ED was hypetensive, afebrile, HR 81, RR 12, O2 sats 98% on RA. EKG, reviewed by me: Sinus Bradycardia HR 56, Sinus Arrhythmia, no acuter ST- T wave changes Labs : No kleukocytosis, BUN 17, Creat 27.4, no electrolyte abn, Lipase Nl, UA : no signs of infection, ketones + Gl 177CTAP : no acute findings, no obstruction. Troponin not elevated 0.012 .Stool burden present without stercoral colitis.LFTs WNL . Discharge Providers Provider Date of admission: 06/03/24 01:47 Discharge Date: 06/05/24 Discharge provider: Juan Carlos Starr MD Summary Hospital Course Discharge Diagnosis: 1) Intractable nausea and vomiting, present on admission and improving. - suspect due to #2 below, now improved after bowel movement. Still nauseous, requiring IV medication. PO medication and diet ordered today. - patient also with hx of gastric sleeve - continue home PPI (2) Opioid-induced constipation, present on admission and improving. - patient has been off opiates for multiple days. - continue with laxative therapies (3) Colitis, present on admission and improving. - suspect stercoral colitis based on history, she had a bowel movement prior to CT which may explain CT finding. If no improvement consider repeat imaging though her abdominal pain has resolved. - no leukocytosis to suggest infection, no fever. Did not give any antibiotics. (4) Hypovolemia dehydration, present on admission and improved. - can stop IV fluids today, advance diet as tolerated, only tolerating some minimal clears today. (5) Hyperglycemia, present on admission and active. - likely reactive, no hx of DM Hospital Course: The patient was admitted and fluid resuscitated and treated symptomatically for constipation, nausea and vomiting. On listening to her story, it sounds as though she was having adverse effects of her pain medication. She had weaned off from these and ibuprofen over the 1st 4-6 days. Today she feels quite a bit better and would like to try Phenergan suppositories and oral Reglan at home. She will stick to clear liquids for the next day or 2 and then do a slow advance. She denies any abdominal pain, recent vomiting or hematemesis. She was felt to be stable for discharge with close follow up and knows that she must hydrate or come back for IV fluids. Status at Discharge Cognitive/behavioral status at discharge: oriented Functional status at discharge: independent ambulation Overall status at discharge: patient is back to baseline Time Spent with Patient Time spent: Greater than 30 minutes Exam Vital Signs (past 8 hours): - 06/05/24 08:04 06/05/24 08:45 Temperature 98.2 F Pulse Rate 59 L Respiratory Rate 19 Blood Pressure 138/74 Pulse Oximetry 98 Oxygen Delivery Method Room Air Oxygen Flow Rate 0 Oxygen Delivery Method Room Air Oxygen Flow Rate 0 Narrative Exam Narrative: NAD, alert and oriented. Fluent speech. Lungs are clear, normal rate and effort. Heart is regular, no murmur gallop or rub. Abdomen is soft, non distended. Extremities are free of edema. Objective Labs 06/05/24 04:18 06/05/24 04:18 Labs: Laboratory Results - last 24 hr 06/05/24 04:18 WBC 9.2 RBC 4.78 Hgb 14.0 Hct 41.1 MCV 86.0 MCH 29.3 MCHC 34.0 RDW 13.5 Plt Count 349 Neut % (Auto) 73.1 Lymph % (Auto) 16.1 L [place] % (Auto) 9.8 Eos % (Auto) 0.3 L Baso % (Auto) 0.7 Neut # (Auto) 6700 Lymph # (Auto) 1500 [place] # (Auto) 900 Eos # (Auto) 0 Baso # (Auto) 100 Sodium 135 L Potassium 3.3 L Chloride 102 Carbon Dioxide 26 BUN 12 Creatinine 0.63 Estimated GFR > 60 BUN/Creatinine Ratio 19.0 Glucose 110 Calcium 9.4 Magnesium 2.1 Total Bilirubin 0.6 AST 39 H ALT 25 Alkaline Phosphatase 76 Total Protein 7.8 Albumin 4.7 Globulin 3.1 Albumin/Globulin Ratio 1.5 [facility] Surgical History H/O shoulder surgery H/O gastric sleeve Social History household members: none Smoking Status: Former smoker Discharge Assessment & Plan Assessment and Plan Assessment: 1) Intractable nausea and vomiting, present on admission and improving. 2) Opioid-induced constipation, present on admission and improving. 3) Colitis, present on admission and improving. 4) Hypovolemia dehydration, present on admission and improved. 5) Hyperglycemia, present on admission and active. Plan of Treatment: Discharge home with Phenergan suppository 12.5 mg q.6 as needed nausea vomiting, Reglan 5 mg q.6 hours as needed for nausea vomiting. She knows to follow up if she was not able to hydrate adequately and we will start with a full liquid diet and slowly advance over the next several days. Discharge Plan Discharge Plan Patient Disposition: Home Provider Discharge Comment: Stable for discharge home with antiemetics. Discharge orders & Medications Prescriptions: New promethazine 12.5 mg suppository 12.5 mg MT TID PRN (Reason: nausea and vomiting) Qty: 12 0RF Rx Instructions: do not give 3rd daily dose after evening meal or within 4hr before bed metoclopramide HCl [Reglan] 5 mg tablet 5 mg PO QACHS PRN (Reason: nausea and vomiting) Qty: 20 0RF Continued oxybutynin chloride 5 mg tablet 5 mg PO DAILY sertraline 100 mg tablet 100 mg PO DAILY rosuvastatin 5 mg tablet 5 mg PO DAILY trazodone 50 mg tablet 50 - 100 mg PO BEDTIME PRN (Reason: Insomnia) Discharge Health Status Multidrug resistant organism: No MDRO Diet/Activity/Treatments Diet: Full Liquid Activity: As tolerated Skin/Wound/Dressing Care Report to your healthcare provider any signs of infection, such as:: chills, fever, increased pain, unusual drainage and unusual redness Visit Report/Discharge Packet Stand Alone Forms: Patient Portal/API Discharge Data Attending Provider: Jose,Nedra Admit Date/Time: 06/03/24 01:47
[2024-06-05] MEDS: ONDANSETRON 4 MG ODT SL (12:56)
--- NOTE | 2024-06-05 13:29 | CM.DPC ---
DCP Cont. Reviewed EMR and team rounds for status updates. Pt has been medically cleared for home d/c. She has family that will transport her home. No further needs are indicated for CM assistance at this time.
--- NOTE | 2024-06-05 15:07 | PC.NURSE ---
Pt discharged home at 1506, escorted off floor in wheelchair accompanied by daughter and hopsital staff. IV removed, tele d/c'd, discharge teaching completed including worsening symptoms and new prescriptions. Patient left the floor with all belongings.
== END 2024-06-05 15:10 | disposition home or self-care (01) ==
LOC: ED 06-03 01:03 → AC 06-03 01:49
PROVIDERS: Internal Medicine; Admitting Provider Hospitalist; Emergency Provider Emergency Medicine; Referring Provider Emergency Medicine; Visit Provider Hospitalist
DX: K59.03 Drug induced constipation (principal); R11.2 Nausea with vomiting, unspecified; T40.2X5A Adverse effect of other opioids, initial encounter; K52.9 Noninfective gastroenteritis and colitis, unspecified; E86.1 Hypovolemia; R73.9 Hyperglycemia, unspecified; E86.0 Dehydration
CPT/HCPCS: 36415; 71045; 74177; 80048; 80053; 81003; 81015; 82550; 82962; 83690; 83735; 84484; 85025; 87086; 93005; 96361; 96365; 96366; 96372; 96375; 96376; 99284; G0378; J1650; J2060; J2405; J2765; J7050; Q9967

== ENCOUNTER 2024-06-07 14:52 | Emergency (ER) | payer MEDICARE, SELFPAY ==
[2024-06-03 02:17] VITALS: BMI 26.3
[2024-06-07] VITALS (10 sets, daily range): BP systolic 135–140; BP diastolic 63–98; PULSE 67–90; RESP 16–18; TEMP 36.7; O2SAT 97–99; BMI 23.9
[2024-06-07 16:46] LABS: Add Manual Diff / Slide Review NO; Basophils Absolute Auto 0 /uL (0-100); Basophils Percent Auto 0.3 % (0-2); Eosinophils Absolute Auto 0 /uL (0-450); Eosinophils Percent Auto 0.1 % (2-4); Hematocrit 49.3 % (36-46); Hemoglobin 17.1 g/dL (12.0-16.0); Lymphocytes Absolute Auto 1400 /uL (1100-4500); Lymphocytes Percent Auto 11.5 % (25-40); Mean Corpuscular HGB Conc 34.7 % (30-36); Mean Corpuscular Hemoglobin 29.5 PG (26-34); Mean Corpuscular Volume 85.1 fL (80-100); Monocytes Absolute Auto 1000 /uL (0-900); Monocytes Percent Auto 7.6 % (3-14); Neutrophils Absolute Auto 10000 /uL (1500-7000); Neutrophils Percent Auto 80.5 % (50-75); Platelet Count 564 X10^3/uL (150-400); Red Cell Distribution Width 13.4 % (11.6-14.8); White Blood Cell Count 12.4 X10^3/uL (4.5-11.0)
[2024-06-07 16:50] LABS: Alanine Aminotransferase 23 IU/L (<35); Albumin Globulin Ratio 1.3 (1.0-2.8); Alkaline Phosphatase 69 U/L (38-126); Aspartate Aminotransferase 36 IU/L (14-36); Bilirubin Total 1.2 mg/dL (0.2-1.3); Blood Urea Nitrogen 47 mg/dL (7-17); Calcium 10.5 mg/dL (8.4-10.2); Carbon Dioxide 24 mmol/L (22-32); Chloride 91 mmol/L (98-107); Estimated Glomerular Filt Rate 31 mL/min (>60); Glucose 137 mg/dL (80-110); HEMOLYSIS 23 (0-50); Potassium 3.4 mmol/L (3.4-5.1); Sodium 127 mmol/L (137-145)
[2024-06-07] MEDS: SODIUM CHLORIDE 0.9% 1,000 ML 1000 ML IV ×2 (18:47→21:47)
--- NOTE | 2024-06-07 18:48 | PC.NURSE ---
Addendum entered by Randa Sanchez R.N. 06/07/24 18:49: Denies being dx with virus Original Note: Pt reports being admitted recently for dehydration--reports lots of N/V. Pt reports being dc and feeling nauseous and has been in taking fluids w/ no vomiting. Pt states she feels dehydrated. Respirations regular and unlabored.
--- NOTE | 2024-06-07 19:00 | ED.NAVMDI ---
HPI - Nausea/Vomiting/Diarrhea General Chief complaint: Nausea/Vomiting/Diarrhea Stated complaint: nausea, vomiting, loss appetite, syncope Time Seen by Provider: 06/07/24 18:30 History of Present Illness HPI Narrative: 69-year-old female presents for nausea, decreased p.o. intake. Patient was recently admitted to the hospital for colitis. She was discharged approximately 24 hours ago. Patient states that she was felt very nauseous and has not been able to eat or drink very much in the last 24 hours. She has been able to take in some fluids without vomiting, but not enough and she feels dehydrated. She states that her abdominal pain is much better. Related Data Home Medications Medication Instructions Recorded Confirmed oxybutynin chloride 5 mg tablet 5 mg PO DAILY 06/04/24 06/04/24 rosuvastatin 5 mg tablet 5 mg PO DAILY 06/04/24 06/04/24 sertraline 100 mg tablet 100 mg PO DAILY 06/04/24 06/04/24 trazodone 50 mg tablet 50 - 100 mg PO BEDTIME PRN Insomnia 06/04/24 06/04/24 Previous Rx's Medication Instructions Recorded metoclopramide HCl 5 mg tablet 5 mg PO QACHS PRN nausea and 06/05/24 (Reglan) vomiting #20 tabs promethazine 12.5 mg rectal 12.5 mg MN TID PRN nausea and 06/05/24 suppository vomiting #12 ea promethazine 12.5 mg rectal 12.5 mg MN Q4-6H PRN nausea and 06/07/24 suppository vomiting #12 ea Allergies Allergy/AdvReac Type Severity Reaction Status Date / Time No Known Drug Allergies Allergy Verified 12/18/22 13:53 Patient History Surgical History H/O shoulder surgery H/O gastric sleeve Social History household members: none Smoking Status: Former smoker Smoking Status: Former smoker alcohol intake frequency: holidays/special occasions only Exam Initial Vital Signs Initial Vital Signs: Vital Signs Temperature 98.0 F 06/07/24 15:19 Pulse Rate 76 06/07/24 15:19 Respiratory Rate 16 06/07/24 15:19 Blood Pressure 138/91 H 06/07/24 15:19 Pulse Oximetry 98 06/07/24 15:19 Oxygen Delivery Method Room Air 06/07/24 15:19 Const: Awake, alert, no acute distress, nontoxic appearing Cardiac: regular rate, regular rhythm RESP: unlabored, clear bilaterally, no wheezing GI: Soft, nontender, nondistended, no rebound, no guarding Skin: Warm, Dry, intact, no rashes Neuro: AO x3, CN II-XII grossly intact, moves all extremities Course Orders Ordered: ED Orders 06/07/24 16:25 Complete Blood Count AUTO DIFF Stat Comprehensive Metabolic Panel Stat Magnesium Stat 06/07/24 21:14 BMP [Basic Metabolic Panel] Stat Discontinued Medications Sodium Chloride (Normal Saline 0.9%) 1,000 mls @ 1,000 mls/hr IV BOLUS ONE Stop: 06/07/24 19:29 Last Infusion: 06/07/24 20:16 Dose: Infused Documented By: Admin: 06/07/24 18:47 Dose: 1,000 mls/hr Documented By: TRICIA Sodium Chloride (Normal Saline 0.9%) 1,000 mls @ 1,000 mls/hr IV BOLUS ONE Stop: 06/07/24 22:42 Last Infusion: 06/07/24 22:47 Dose: Infused Documented By: Admin: 06/07/24 21:47 Dose: 1,000 mls/hr Documented By: Metoclopramide HCl (Metoclopramide 10 Mg/2 Ml Inj) 10 mg IV NOW ONE Stop: 06/07/24 18:50 Last Admin: 06/07/24 19:02 Dose: 10 mg Documented By: TRICIA Ondansetron HCl (Ondansetron 4 Mg/2 Ml Inj) 4 mg IV NOW ONE Stop: 06/07/24 18:31 Last Admin: 06/07/24 18:46 Dose: Not Given Documented By: TRICIA Vital Signs Vital signs: Vital Signs - 8 hr 06/07/24 15:19 06/07/24 18:31 06/07/24 18:31 Temperature 98.0 F Pulse Rate 76 82 Respiratory Rate 16 Blood Pressure 138/91 H 140/98 H Pulse Oximetry 98 98 Oxygen Delivery Method Room Air 06/07/24 19:00 06/07/24 19:00 06/07/24 19:30 Temperature Pulse Rate 75 67 Respiratory Rate Blood Pressure 135/85 Pulse Oximetry 98 99 Oxygen Delivery Method Room Air 06/07/24 19:30 06/07/24 20:00 06/07/24 20:00 Temperature Pulse Rate 73 Respiratory Rate Blood Pressure 140/63 139/65 Pulse Oximetry 98 Oxygen Delivery Method 06/07/24 20:30 06/07/24 21:00 06/07/24 21:30 Temperature Pulse Rate 80 88 90 Respiratory Rate 18 18 Blood Pressure Pulse Oximetry 97 99 98 Oxygen Delivery Method 06/07/24 22:00 06/07/24 22:30 Temperature Pulse Rate 71 70 Respiratory Rate 18 Blood Pressure Pulse Oximetry 99 99 Oxygen Delivery Method Room Air MDM - Nausea/Vomiting/Diarrhea Differential Diagnosis Differential diagnosis: Likely traveler's diarrhea, gastroenteritis, drug-induced nausea and vomiting and dehydration Lab Data 06/07/24 16:25 06/07/24 21:14 Labs: Lab Results 06/07/24 06/07/24 Range/Units 16:25 21:14 WBC 12.4 H (4.5-11.0) X10^3/uL RBC 5.80 H (4.0-5.2) X10^6/uL Hgb 17.1 H (12.0-16.0) g/dL Hct 49.3 H (36-46) % MCV 85.1 (80-100) fL MCH 29.5 (26-34) PG MCHC 34.7 (30-36) % RDW 13.4 (11.6-14.8) % Plt Count 564 H (150-400) X10^3/uL Neut % (Auto) 80.5 H (50-75) % Lymph % (Auto) 11.5 L (25-40) % [place] % (Auto) 7.6 (3-14) % Eos % (Auto) 0.1 L (2-4) % Baso % (Auto) 0.3 (0-2) % Neut # (Auto) 73087 H (9976-0292) /uL Lymph # (Auto) 1400 (9408-6211) /uL [place] # (Auto) 1000 H (0-900) /uL Eos # (Auto) 0 (0-450) /uL Baso # (Auto) 0 (0-100) /uL Sodium 127 L 130 L (137-145) mmol/L Potassium 3.4 3.3 L (3.4-5.1) mmol/L Chloride 91 L 93 L (98-107) mmol/L Carbon Dioxide 24 26 (22-32) mmol/L BUN 47 H 45 H (7-17) mg/dL Creatinine 1.74 H 1.43 H (0.52-1.04) mg/dL Estimated GFR 31 L 39 L (>60) mL/min BUN/Creatinine Ratio 27.0 H 31.5 H (6-22) Glucose 137 H 110 (80-110) mg/dL Calcium 10.5 H 9.7 (8.4-10.2) mg/dL Magnesium 2.0 (1.6-2.3) mg/dL Total Bilirubin 1.2 (0.2-1.3) mg/dL AST 36 (14-36) IU/L ALT 23 (<35) IU/L Alkaline Phosphatase 69 (38-126) U/L Total Protein 9.0 H (6.3-8.2) g/dL Albumin 5.0 (3.5-5.0) g/dL Globulin 4.0 (1.7-4.1) g/dL Albumin/Globulin Ratio 1.3 (1.0-2.8) MDM Narrative Medical decision making narrative: nontoxic appearing patient with persistent nausea. She was just discharged from the hospital after being admitted for colitis. She states that her abdominal pains have improved but she was still nauseous and it was causing her problems with drinking enough fluids. Abdomen soft, no reproducible tenderness. Laboratory work shows WBC count 12.4, hemoglobin 17, platelet count 564, sodium 127, potassium 3.4, creatinine 1.74, calcium 10.5, normal liver enzymes. laboratory work 36 hours ago showed creatinine of 0.63 and sodium 135. TRAVIS likely secondary to hypo volemia. Patient was given Reglan and 1 L of IV fluids. repeat BMP shows improvement in creatinine and GFR. Patient was able to tolerate p.o. without nausea and reported feeling significantly better after IV fluids. Patient was given an additional L of IV fluids and counseled on the importance of staying hydrated and following up with her primary care doctor to make sure that her creatinine goes back down to normal. She was advised to stay away from NSAIDs and other potentially harmful medications to her kidneys. Patient requested Phenergan suppositories as they are the only thing that seem to help her nausea. These were sent to the patient's pharmacy of choice. Discharge Plan Departure Patient Disposition: Home Clinical Impression: Nausea, TRAVIS (acute kidney injury) Instructions: Creatinine, DI for Nausea -- Adult Activity Restrictions/Additional Instructions: Today you did have signs of dehydration on your blood work. This has improved with hydration, but your kidney function is still not quite back to where it was before you were hospitalized. Make sure that you stay hydrated and drink plenty of fluids. Avoid aspirin, ibuprofen, Aleve, or other anti-inflammatories as these can irritate your kidneys. Follow up with your primary care doctor to make sure that your kidney function goes back to normal. Prescriptions: New promethazine 12.5 mg suppository 12.5 mg MN Q4-6H PRN (Reason: nausea and vomiting) Qty: 12 0RF No Action oxybutynin chloride 5 mg tablet 5 mg PO DAILY sertraline 100 mg tablet 100 mg PO DAILY rosuvastatin 5 mg tablet 5 mg PO DAILY trazodone 50 mg tablet 50 - 100 mg PO BEDTIME PRN (Reason: Insomnia) promethazine 12.5 mg suppository 12.5 mg MN TID PRN (Reason: nausea and vomiting) Qty: 12 0RF Rx Instructions: do not give 3rd daily dose after evening meal or within 4hr before bed metoclopramide HCl [Reglan] 5 mg tablet 5 mg PO QACHS PRN (Reason: nausea and vomiting) Qty: 20 0RF Stand Alone Forms: Patient Portal/API/Survey
[2024-06-07] MEDS: METOCLOPRAMIDE 10 MG/2 ML INJ IV (19:02)
[2024-06-07 21:33] LABS: BUN Creatinine Ratio 31.5 (6-22); Blood Urea Nitrogen 45 mg/dL (7-17); Calcium 9.7 mg/dL (8.4-10.2); Carbon Dioxide 26 mmol/L (22-32); Chloride 93 mmol/L (98-107); Estimated Glomerular Filt Rate 39 mL/min (>60); Glucose 110 mg/dL (80-110); HEMOLYSIS 27 (0-50); Potassium 3.3 mmol/L (3.4-5.1); Sodium 130 mmol/L (137-145)
== END 2024-06-07 22:57 | disposition home or self-care (01) ==
PROVIDERS: Emergency Medicine; Emergency Provider Emergency Medicine
DX: N17.9 Acute kidney failure, unspecified (principal); R11.0 Nausea
CPT/HCPCS: 36415; 80048; 80053; 83735; 85025; 96361; 96374; 99283; 99284; J2765

== ENCOUNTER 2024-08-23 09:14 | Emergency (ER) | payer MEDICARE, SELFPAY ==
[2024-06-03 02:17] VITALS: BMI 26.3
[2024-08-23] VITALS (11 sets, daily range): BP systolic 130–182; BP diastolic 63–82; PULSE 50–70; RESP 13–25; TEMP 37.2; O2SAT 95–100; BMI 25.8
--- NOTE | 2024-08-23 09:20 | EKG_ITS ---
[address] [address] Test Date: 2024-08-23 Pat Name: Leann Metcalf Department: Room: Gender: Female Asset Protection Officer: BERNADETTE : 1955 Requested By: Order Number: [id number] Reading MD: Juan Carlos Starr Measurements Intervals [place] Rate: 47 P: 50 AR: 174 QRS: 32 QRSD: 90 T: 29 QT: 476 QTc: 421 Interpretive Statements Sinus bradycardia Electronically Signed On 08-26-2024 8:30:49 PDT by Juan Carlos Starr
--- NOTE | 2024-08-23 09:20 | DI.RAD.S_ITS ---
PROCEDURE: XR CHEST 1V INDICATIONS: chest pain TECHNIQUE: One view of the chest was acquired. COMPARISON: [facility], CR, XR CHEST 1V, 06/02/2024, 22:22. FINDINGS: Surgical changes and devices: Left chest clips. Lungs and pleura: Lungs are clear. No pleural effusions or pneumothorax. Mediastinum: Mediastinal contours appear normal. Heart size is normal. Bones and chest wall: No suspicious bony lesions. Multiple old right-sided rib fractures. Overlying soft tissues appear unremarkable. IMPRESSION: No acute cardiopulmonary abnormality is seen. Dictated by: Ronn Ayon M.D. on 08/23/2024 at 10:11 Approved by: Ronn Ayon M.D. on 08/23/2024 at 10:11
--- NOTE | 2024-08-23 09:34 | ED_ITS ---
HPI - Chest Pain General Chief Complaint: Chest Pain Stated Complaint: nausea, vomiting, chest pressure Time Seen by Provider: 08/23/24 09:17 Source: patient Mode of arrival: Family Vehicle Limitations: no limitations History of Present Illness HPI narrative: 69-year-old woman with a history of depression, hyperlipidemia, history of a gastric sleeve about 6 years ago, no diabetes no regular marijuana use presents with nausea and vomiting that started last night. Seemingly unprovoked not associated with fevers, abdominal pain or diarrhea. She notes that her stomach in mid esophagus is sore from the act of vomiting all night long. She has gotten no sleep. She had a similar episode that ended up with 2 day hospitalization in May with concerned that this was related to a colitis, she was seen 2 days later in the ER and again rehydrated. Has not had similar episodes until last night. She has not having cough, palpitations or overt chest pain Related Data Home Medications Medication Instructions Recorded Confirmed oxybutynin chloride 5 mg tablet 5 mg PO DAILY 06/04/24 06/04/24 rosuvastatin 5 mg tablet 5 mg PO DAILY 06/04/24 06/04/24 sertraline 100 mg tablet 100 mg PO DAILY 06/04/24 06/04/24 trazodone 50 mg tablet 50 - 100 mg PO BEDTIME PRN Insomnia 06/04/24 06/04/24 Previous Rx's Medication Instructions Recorded metoclopramide HCl 5 mg tablet 5 mg PO QACHS PRN nausea and 06/05/24 (Reglan) vomiting #20 tabs promethazine 12.5 mg rectal 12.5 mg [place] TID PRN nausea and 06/05/24 suppository vomiting #12 ea promethazine 12.5 mg rectal 12.5 mg [place] Q4-6H PRN nausea and 06/07/24 suppository vomiting #12 ea ondansetron 4 mg disintegrating 4 mg PO Q8H PRN nausea and 08/23/24 tablet vomiting #20 tabs Allergies Allergy/AdvReac Type Severity Reaction Status Date / Time No Known Drug Allergies Allergy Verified 08/23/24 09:26 Review of Systems Review of Systems Narrative: Pertinent positive and negative findings as per HPI Patient History Surgical History H/O shoulder surgery H/O gastric sleeve Social History household members: none Smoking Status: Former smoker Smoking Status: Former smoker tobacco type: cigarettes alcohol intake frequency: holidays/special occasions only Exam Initial Vital Signs Initial Vital Signs: Vital Signs Temperature 98.9 F 08/23/24 09:21 Pulse Rate 52 L 08/23/24 09:21 Respiratory Rate 14 08/23/24 09:21 Pulse Oximetry 99 08/23/24 09:21 Oxygen Delivery Method Room Air 08/23/24 09:21 General: Healthy appearing, in no acute distress. Able to give a complete and coherent history. HEENT: Dry mucous membranes, normal sclera with reactive pupils, Respiratory: Lungs are clear to auscultation, no wheezing no rales no rhonchi. Full and symmetrical air movement Cardiac: Regular rate and rhythm no murmurs no bruits Abdomen: Soft, mild tenderness in the epigastrium, no rebound or guarding. Skin: Pale, Warm and dry, no rashes Neurologic: Grossly neurologically intact with no obvious asymmetries or abnormalities Extremities: No trauma, well perfused Psych: Cooperative, appropriate insight and affect Course Orders Ordered: ED Orders 08/23/24 09:20 XR chest 1V Stat EKG-12 Lead Stat 08/23/24 09:27 Complete Blood Count AUTO DIFF Stat Comprehensive Metabolic Panel Stat Lipase Stat Magnesium Stat NT-proBNP (BNP-Adult 18+) Stat PTT Partial Thromboplastin Gus Stat Prothrombin Time INR Stat Troponin & CK Cardiac Panel Stat 08/23/24 11:29 Trop I [Troponin I] Stat Discontinued Medications Aspirin (Aspirin 81 Mg Chew Tab) 324 mg PO NOW ONE Stop: 08/23/24 09:21 Last Admin: 08/23/24 09:35 Dose: 324 mg Documented By: MPO Droperidol (Droperidol 2.5 Mg/Ml Vial) 0.625 mg IV NOW ONE Stop: 08/23/24 09:42 Last Admin: 08/23/24 09:53 Dose: 0.625 mg Documented By: MPO Sodium Chloride (Normal Saline 0.9%) 1,000 mls @ 1,000 mls/hr IV BOLUS ONE Stop: 08/23/24 10:40 Last Infusion: 08/23/24 10:14 Dose: Infused Documented By: Admin: 08/23/24 09:53 Dose: 1,000 mls/hr Documented By: MARY Ondansetron HCl (Ondansetron 4 Mg/2 Ml Inj) 4 mg IV NOW ONE Stop: 08/23/24 12:07 Last Admin: 08/23/24 12:18 Dose: 4 mg Documented By: SHIRLEY Vital Signs Vital signs: Vital Signs - 8 hr 08/23/24 09:21 08/23/24 09:32 08/23/24 10:00 Temperature 98.9 F Pulse Rate 52 L 50 L 54 L Respiratory Rate 14 16 18 Blood Pressure Pulse Oximetry 99 100 98 Oxygen Delivery Method Room Air Room Air 08/23/24 10:00 08/23/24 10:30 08/23/24 11:04 Temperature Pulse Rate 59 L 56 L Respiratory Rate 25 H 15 Blood Pressure 163/70 H 167/74 H 182/82 H Pulse Oximetry 99 100 Oxygen Delivery Method 08/23/24 12:00 08/23/24 12:01 08/23/24 12:30 Temperature Pulse Rate 57 L 58 L 70 Respiratory Rate 24 20 20 Blood Pressure 165/72 H 130/63 140/71 Pulse Oximetry 98 99 98 Oxygen Delivery Method MDM - Chest Pain Lab Data 08/23/24 09:27 08/23/24 09:27 Labs: Lab Results 08/23/24 08/23/24 Range/Units 09:27 11:29 WBC 14.0 H (4.5-11.0) X10^3/uL RBC 4.53 (4.0-5.2) X10^6/uL Hgb 13.6 (12.0-16.0) g/dL Hct 39.4 (36-46) % MCV 87.1 (80-100) fL MCH 29.9 (26-34) PG MCHC 34.4 (30-36) % RDW 13.9 (11.6-14.8) % Plt Count 280 (150-400) X10^3/uL Neut % (Auto) 93.0 H (50-75) % Lymph % (Auto) 3.8 L (25-40) % [place] % (Auto) 2.6 L (3-14) % Eos % (Auto) 0.3 L (2-4) % Baso % (Auto) 0.3 (0-2) % Neut # (Auto) 79009 H (5081-8281) /uL Lymph # (Auto) 500 L (3465-9052) /uL [place] # (Auto) 400 (0-900) /uL Eos # (Auto) 0 (0-450) /uL Baso # (Auto) 0 (0-100) /uL PT 11.2 (9.4-12.5) SECONDS INR 1.0 (0.9-1.3) APTT 33 (25.1-36.5) SECONDS Sodium 135 L (137-145) mmol/L Potassium 4.1 (3.4-5.1) mmol/L Chloride 103 (98-107) mmol/L Carbon Dioxide 19 L (22-32) mmol/L BUN 14 (7-17) mg/dL Creatinine 0.52 (0.52-1.04) mg/dL Estimated GFR > 60 (>60) mL/min BUN/Creatinine Ratio 26.9 H (6-22) Glucose 166 H (80-110) mg/dL Calcium 9.5 (8.4-10.2) mg/dL Magnesium 1.7 (1.6-2.3) mg/dL Total Bilirubin 1.0 (0.2-1.3) mg/dL AST 56 H (14-36) IU/L ALT 31 (<35) IU/L Alkaline Phosphatase 43 (38-126) U/L Total Creatine Kinase 126 (30-135) U/L Troponin I 0.039 H 0.056 H (0.01-0.034) ng/mL NT-Pro-B Natriuret Pep 1180 H (<125) pg/mL Total Protein 9.1 H (6.3-8.2) g/dL Albumin 5.4 H (3.5-5.0) g/dL Globulin 3.7 (1.7-4.1) g/dL Albumin/Globulin Ratio 1.5 (1.0-2.8) Lipase 37 (23-300) U/L Urine Dip Bedside Urine Glucose Negative Bedside Urine Bilirubin - Negative Bedside Urine Ketone ++ 40 Urine Specific [place] 1.015 Bedside Urine Occult Blood +/- Bedside Urine pH 7.5 Bedside Urine Protein - Negative Bedside Urine Urobilinogen - Negative Bedside Urine Nitrite - Negative Bedside Urine Leukocytes - Negative Esterase MDM Narrative Medical decision making narrative: CC: Persistent vomiting Complicating co-morbidities: Gastric sleeve, previous episode with vomiting and dehydration in May of this year Data collected from: patient Medical records reviewed: Hospital records including hospitalization for similar complaint from May reviewed Patient states she had a heart catheterization did not [facility] last week and was told ?everything was good. will work on getting those records Differential considered: Viral etiology, complication of her gastric sleeve, medication side effect. I do not suspect gastroparesis or cannabinoid hyperemesis syndrome Exam documented above, pertinent findings include: Patient is nontoxic appearing, not overly dehydrated dyspnea fact the fact that she has been vomiting much of the evening. Her abdomen is minimally tender diffusely without signs of an acute surgical abdomen Lab Test results independently reviewed as above. Pertinent findings: CBC shows a leukocytosis at 14 with 93% neutrophils, no anemia Chemistries show normal renal function, glucose slightly elevated at 166, minimal elevation to AST 56 Lipase is unremarkable Troponin is slightly elevated at 0.039 ProBNP is minimally elevated at 1180 Independently reviewed EKG: EKG shows sinus bradycardia at a rate of 47 without ischemic changes appreciated Imaging studies independently reviewed: CT scan done in May for similar findings show inflammatory changes in the deep pelvis with the associated rectal and sigmoid colonic wall thickening likely indicating colitis or proctitis, no appendicitis or diverticulitis. Pelvic organs were noted to be unremarkable Consultations: Cardiology consult, Cyndi Sy. Heart Cath last week showed completely clean coronary arteries. He did not recommend any additional follow up or evaluation with a minimally elevated troponins appreciated today Treatments: Aspirin, saline, droperidol Re-evaluations: Patient needs to void after the initial L of fluids states she is feeling somewhat better. Abdomen is re-examined she has absolutely no lower abdominal tenderness and epigastric tenderness is significantly improved. We will try oral challenge Discussion: 69-year-old woman with acute nausea and intractable vomiting. She is better hydrated able to eat and drink still slightly nauseated but the Zofran does seemed able to control it. There is no evidence of acute kidney failure, severe electrolyte abnormalities after discussion with Cardiology I am not concerned that this is cardiac event causing her nausea. I believe she is safe for discharge home, hospitalization is not indicated. Questions are answered. Discharge Plan Departure Patient Disposition: Home Clinical Impression: Intractable nausea and vomiting Instructions: DI for Nausea -- Adult Activity Restrictions/Additional Instructions: Thank you for coming in today I do not have a complete explanation for why you are having so much vomiting however we have rehydrated you and you have had 2 different types of nausea medicine and are able to keep at least some water down You do not have any acute kidney issues, no electrolyte abnormalities, no liver study abnormalities. There was no indication that you need to stay in the hospital. I have sent a prescription for Zofran, nausea medicine, to [facility]. I hope that you are able to control your nausea more effectively. If you find that you are getting worse or develop any new symptoms, please feel free to return to the emergency department for further evaluation. Prescriptions: New ondansetron 4 mg tablet,disintegrating 4 mg PO Q8H PRN (Reason: nausea and vomiting) Qty: 20 0RF No Action oxybutynin chloride 5 mg tablet 5 mg PO DAILY sertraline 100 mg tablet 100 mg PO DAILY rosuvastatin 5 mg tablet 5 mg PO DAILY trazodone 50 mg tablet 50 - 100 mg PO BEDTIME PRN (Reason: Insomnia) promethazine 12.5 mg suppository 12.5 mg [place] TID PRN (Reason: nausea and vomiting) Qty: 12 0RF Rx Instructions: do not give 3rd daily dose after evening meal or within 4hr before bed metoclopramide HCl [Reglan] 5 mg tablet 5 mg PO QACHS PRN (Reason: nausea and vomiting) Qty: 20 0RF promethazine 12.5 mg suppository 12.5 mg [place] Q4-6H PRN (Reason: nausea and vomiting) Qty: 12 0RF Stand Alone Forms: Patient Portal/API/Survey
[2024-08-23 09:35] LABS: Add Manual Diff / Slide Review NO; Basophils Absolute Auto 0 /uL (0-100); Basophils Percent Auto 0.3 % (0-2); Eosinophils Absolute Auto 0 /uL (0-450); Eosinophils Percent Auto 0.3 % (2-4); Hematocrit 39.4 % (36-46); Hemoglobin 13.6 g/dL (12.0-16.0); Lymphocytes Absolute Auto 500 /uL (1100-4500); Lymphocytes Percent Auto 3.8 % (25-40); Mean Corpuscular HGB Conc 34.4 % (30-36); Mean Corpuscular Hemoglobin 29.9 PG (26-34); Mean Corpuscular Volume 87.1 fL (80-100); Monocytes Absolute Auto 400 /uL (0-900); Monocytes Percent Auto 2.6 % (3-14); Neutrophils Absolute Auto 13000 /uL (1500-7000); Platelet Count 280 X10^3/uL (150-400); Red Blood Cell Count 4.53 X10^6/uL (4.0-5.2); Red Cell Distribution Width 13.9 % (11.6-14.8)
[2024-08-23] MEDS: ASPIRIN 81 MG CHEW TAB 324 MG PO (09:35)
[2024-08-23 09:44] LABS: Prothrombin Time 11.2 SECONDS (9.4-12.5)
[2024-08-23 09:46] LABS: Alanine Aminotransferase 31 IU/L (<35); Albumin 5.4 g/dL (3.5-5.0); Albumin Globulin Ratio 1.5 (1.0-2.8); Alkaline Phosphatase 43 U/L (38-126); Aspartate Aminotransferase 56 IU/L (14-36); BUN Creatinine Ratio 26.9 (6-22); Blood Urea Nitrogen 14 mg/dL (7-17); Calcium 9.5 mg/dL (8.4-10.2); Carbon Dioxide 19 mmol/L (22-32); Chloride 103 mmol/L (98-107); Creatine Kinase 126 U/L (30-135); Estimated Glomerular Filt Rate > 60 mL/min (>60); Globulin 3.7 g/dL (1.7-4.1); Glucose 166 mg/dL (80-110); Lipase 37 U/L (23-300); Magnesium 1.7 mg/dL (1.6-2.3); Potassium 4.1 mmol/L (3.4-5.1); Sodium 135 mmol/L (137-145); Total Protein 9.1 g/dL (6.3-8.2)
[2024-08-23 09:47] LABS: HEMOLYSIS 123 (0-50); PTT Partial Thromboplastin Tim 33 SECONDS (25.1-36.5)
[2024-08-23] MEDS: SODIUM CHLORIDE 0.9% 1,000 ML 1000 ML IV (09:53)
[2024-08-23] MEDS: droPERidol 2.5 MG/ML VIAL 0.625 MG IV (09:53)
[2024-08-23 09:58] LABS: NT-proBNP (BNP-Adult 18+) 1180 pg/mL (<125); Troponin I 0.039 ng/mL (0.01-0.034)
--- NOTE | 2024-08-23 10:32 | PC.NURSE ---
Pt states that she feels better after nausea medication and fluids. Denies cp and abd pain. A&Ox4.
[2024-08-23 11:57] LABS: Troponin I 0.056 ng/mL (0.01-0.034)
[2024-08-23] MEDS: ONDANSETRON 4 MG/2 ML INJ IV (12:18)
== END 2024-08-23 14:04 | disposition home or self-care (01) ==
PROVIDERS: Emergency Provider Emergency Medicine
DX: R11.2 Nausea with vomiting, unspecified (principal); R07.9 Chest pain, unspecified; R00.1 Bradycardia, unspecified; Z98.84 Bariatric surgery status
CPT/HCPCS: 36415; 71045; 80053; 81003; 82550; 83690; 83735; 83880; 84484; 85025; 85610; 85730; 93005; 96374; 96375; 99284; J1790; J2405